=== PATIENT | male | born 1965 | race Two or more races ===

== ENCOUNTER 2023-08-24 18:43 | Emergency (ER) | payer OTHER ==
[~2023-08-24] VITALS: Ht 165.1 cm; Wt 59.0 kg
[2023-08-24] MEDS ORDERED: FINASTERIDE1 MG PO (19:04)
[2023-08-24] MEDS ORDERED: ROGAINE60 GM PO (19:04)
[2023-08-24] MEDS ORDERED: FAMOTIDINE/PF 20 MG/2 ML VIAL IV PUSH STA (22:16)
== END 2023-08-25 00:43 | disposition home or self-care (01) ==
LOC: ER 18:44
DX: R07.9 Chest pain, unspecified (principal)